=== PATIENT | female | born 1990 | race Caucasian/White ===

== ENCOUNTER 2018-05-06 22:10 | Emergency (ER) | payer OTHER ==
[~2018-05-06] VITALS: Ht 157.5 cm; Wt 69.4 kg
--- NOTE | 2018-05-06 22:39 | NUR ---
PT PRESENTED WITH C/O ALLERGIC REACTION, ITCHY THROAT, SWLLING ON RIGHT SIDE OF FACE STATED "I HAVE A NUT ALLERGY. "PT TOOK 50 MG OF BENADRY PURSE SEINER. MONITORS APPLIED, SIDERAILS UP X2, CALL LIGHT WITHIN REACH. PA AT BEDSIDE FOR EVAL
[2018-05-06] MEDS ORDERED: BIMA2.5D EACHEYE (22:43)
[2018-05-06] MEDS ORDERED: DORZ10DR21 EACHEYE (22:44)
[2018-05-06] MEDS ORDERED: FAMOTIDINE 20 MG TABLET ONE (22:52)
--- NOTE | 2018-05-06 22:56 | NUR ---
PT MEDICATED PER MAR.
[2018-05-06] MEDS ORDERED: FAMOTIDINE 20 MG TABLET PO ONE (23:00)
[2018-05-06 23:16] VITALS: BP 127/84
--- NOTE | 2018-05-06 23:16 | NUR ---
PT RESTING CALMLY, MONITORS IN PLACE, STATED " I FEEL BETTER", CALL LIGHT WITHIN REACH.
== END 2018-05-06 23:38 | disposition home or self-care (01) ==
LOC: ED 22:27
DX: T78.1XXA Other adverse food reactions, not elsewhere classified, initial encounter (principal); Z91.018 Allergy to other foods; X58.XXXA Exposure to other specified factors, initial encounter
CPT/HCPCS: 99283; J7512